=== PATIENT | female | born 1960 | race American Indian/Alaskan Native ===

== ENCOUNTER 2022-11-13 20:46 | Emergency (ER) | payer BC ==
[2022-11-13 21:42] VITALS: RESP 16; BMI 18.5
[2022-11-13 22:58] VITALS: BP 135/82; PULSE 104; TEMP 98.6
[2022-11-13 23:19] LABS: HEMATOCRIT 36.3 % (32.4-45.2); HEMOGLOBIN 11.9 G/dL (10.7-15.3); MCH 29.6 pg (25.7-33.7); MCHC 32.9 g/dl (32.0-36.0); MEAN PLT VOLUME 7.5 fl (7.5-11.1); PLATELET COUNT 308.7 10^3/uL (134-434); RBC 4.03 10^6/uL (3.60-5.2); RDW 13.6 % (11.6-15.6); WHITE BLOOD COUNT 12.2 10^3/uL (4.0-10.8)
[2022-11-13 23:39] LABS: ALBUMIN 4.6 g/dl (3.4-5.0); BLOOD UREA NITROGEN 21.3 mg/dl (7-18); CALCIUM 10.3 mg/dl (8.5-10.1); POTASSIUM 3.5 mmol/L (3.5-5.1); SGPT/ALT 25.1 U/L (7-52); TOT PROT 7.9 g/dl (6.4-8.2)
[2022-11-13 23:40] LABS: PLATELET ESTIMATE ADEQUATE
[2022-11-14 01:04] LABS: BILIRUBIN,TOTAL 0.6 mg/dL (0.2-1)
== END 2022-11-13 23:56 | disposition home or self-care (01) ==
LOC: FER 20:46
DX: K92.1 Melena (principal); R10.30 Lower abdominal pain, unspecified; K64.4 Residual hemorrhoidal skin tags; R00.0 Tachycardia, unspecified
CPT/HCPCS: 36415; 80053; 85027; 99283-25